=== PATIENT | male | born 1970 | race Hispanic/Latino ===

== ENCOUNTER 2024-05-18 10:49 | Emergency (ER) | payer OTHER ==
[~2024-05-18] VITALS: Ht 182.9 cm; Wt 108.9 kg
[2024-05-18 10:59] VITALS: PULSE 89; RESP 18; TEMP 97.8; O2SAT 96
[2024-05-18] MEDS: KETOROLAC TROMETHAMINE 30 MG/ML VIAL IM STA (11:27)
[2024-05-18] MEDS ORDERED: KETOROLAC TROME10 MG PO (12:02)
== END 2024-05-18 12:10 | disposition home or self-care (01) ==
LOC: FSED 10:55
DX: S43.492A Other sprain of left shoulder joint, initial encounter (principal); X50.1XXA Overexertion from prolonged static or awkward postures, initial encounter; Y92.89 Other specified places as the place of occurrence of the external cause
CPT/HCPCS: 73030; 99283; J1885